=== PATIENT | male | born 1985 | race Caucasian/White ===

== ENCOUNTER 2020-04-17 02:40 | Emergency (ER) | payer OTHER ==
[~2020-04-17] VITALS: Ht 167.6 cm; Wt 73.5 kg
[2020-04-17 03:27] VITALS: BP 133/92
[2020-04-17 03:33] LABS: BASOPHILS % (AUTO) 0 % (0-1); EOSINOPHILS % (AUTO) 1 % (1-7); LYMPHOCYTES % (AUTO) 19 % (22-44); MEAN CORPUSCULAR HGB CONC 34.1 g/dL (33.2-36.2); MEAN PLATELET VOLUME 7.2 fL (7.4-10.4); MONOCYTES % (AUTO) 8 % (2-9); NEUTROPHILS % (AUTO) 73 % (42-75); PLATELET COUNT 263 x10^3/uL (130-400); RED BLOOD COUNT 5.38 x10^6/uL (4.38-5.82); RED CELL DISTRIBUTION WIDTH 13.7 % (9.4-14.8)
[2020-04-17 03:48] LABS: MD NO
== END 2020-04-17 04:58 | disposition home or self-care (01) ==
LOC: ED 04:42
DX: M10.071 Idiopathic gout, right ankle and foot (principal); M13.171 Monoarthritis, not elsewhere classified, right ankle and foot
CPT/HCPCS: 36415; 83880; 84550; 85025; 99284

== ENCOUNTER 2020-04-26 05:37 | Emergency (ER) | payer OTHER ==
[~2020-04-26] VITALS: Ht 167.6 cm; Wt 73.5 kg
[2020-04-26 05:40] VITALS: BP 129/84
[2020-04-26] MEDS ORDERED: KETOROLAC 30 MG/1 ML ONE (06:02)
[2020-04-26] MEDS ORDERED: PLEASE ENTER ALLERGIES MC SCH (06:30)
[2020-04-26] MEDS ORDERED: KETOROLAC 30 MG/1 ML IM ONE (06:30)
--- NOTE | 2020-04-26 06:50 | NUR ---
Patient given discharge instructions and they have confirmed that they understand the instructions. Patient ambulatory with steady gait.
== END 2020-04-26 06:52 | disposition home or self-care (01) ==
LOC: MERGE 05:37 → ED 06:07
DX: M79.671 Pain in right foot (principal); M13.171 Monoarthritis, not elsewhere classified, right ankle and foot
CPT/HCPCS: 96372; 99283; J1885